=== PATIENT | male | born 1970 | race Caucasian/White ===

== ENCOUNTER 2019-05-01 11:10 | Emergency (ER) | payer SELFPAY, OTHER ==
[2019-05-01] MEDS: IBUPROFEN 800 MG TAB PO (13:23)
[2019-05-01] MEDS: BACLOFEN 10 MG TAB PO (13:32)
== END 2019-05-01 16:16 | disposition home or self-care (01) ==
LOC: E/R 11:10
DX: M54.2 Cervicalgia (principal)
CPT/HCPCS: 72125; 99284-25